=== PATIENT | female | born 1995 | race Two or more races ===

== ENCOUNTER → 2025-02-20 | Outpatient (CLI) | payer BC, SELFPAY ==
--- NOTE | 2025-02-20 10:00 | XR_ITS ---
Examination: Transvaginal ultrasound of the pelvis, complete Technique: Transvaginal sonographic images pelvis performed using vale scale imaging Exam date and time: February 20, 2025, 0946 hours INDICATIONS: Maternal obesity, high risk , history 2 prior miscarriages spontaneous abortions FINDINGS: Uterus 8.2 cm endometrial stripe 0.9 cm No uterine mass or intrauterine gestation Right ovary 2.4 cm arterial flow Solid right ovarian mass 16 x 17 x 17 mm Left ovary 4.0 cm arterial flow small follicular type cyst, 17 mm, 15 mm Mild fluid in the cul-de-sac IMPRESSION: Solid right ovarian mass 16 x 17 x 17 mm, recommend MRI pelvis follow-up pre and postcontrast.
== END | disposition home or self-care (01) ==
PROVIDERS: PCP Family Medicine; Referring Provider Family Medicine; Visit Provider Family Medicine
DX: N83.8 Other noninflammatory disorders of ovary, fallopian tube and broad ligament (principal); E28.2 Polycystic ovarian syndrome
CPT/HCPCS: 76830